=== PATIENT | male | born 1960 | race Caucasian/White ===

== ENCOUNTER 2019-03-27 08:24 | Outpatient (RCR) | payer OTHER | END 2019-06-24 13:17 | disposition home or self-care (01) | LOC: WSOH 08:24 | DX: S50.02XA Contusion of left elbow, initial encounter (principal); S70.12XA Contusion of left thigh, initial encounter; W01.0XXA Fall on same level from slipping, tripping and stumbling without subsequent striking against object, initial encounter; I10 Essential (primary) hypertension; E78.00 Pure hypercholesterolemia, unspecified; E11.9 Type 2 diabetes mellitus without complications; K21.9 Gastro-esophageal reflux disease without esophagitis; Z90.89 Acquired absence of other organs; Z87.891 Personal history of nicotine dependence; Y99.0 Civilian activity done for income or pay | CPT/HCPCS: 24091; A6549 ==